=== PATIENT | female | born 1960 | race Caucasian/White ===

== ENCOUNTER 2021-07-18 09:24 | Day surgery (SDC) | payer BC ==
[2021-07-17 11:56] VITALS: BMI 29.5
[2021-07-18] MEDS ORDERED: Lidocaine 1% w/Epinephrine 1:100K 20 ML VIAL ONE (11:02)
[2021-07-18] MEDS ORDERED: Fentanyl 100 MCG/2 ML VIAL ONE (11:06)
[2021-07-18] MEDS ORDERED: Dexamethasone 20 MG/5 ML VIAL ONE (11:25)
[2021-07-18] MEDS ORDERED: PROPOFOL 200 MG/20 ML VIAL ONE (11:25)
[2021-07-18] MEDS ORDERED: Glycopyrrolate 0.2 MG/ML 5 ML SYRINGE ONE (11:25)
[2021-07-18] MEDS ORDERED: Succinylcholine 200 MG/10 ml SYRINGE FS ONE (11:25)
[2021-07-18] MEDS ORDERED: Ondansetron PF 4 MG/2 ML Vial ONE (11:25)
[2021-07-18] MEDS ORDERED: Lidocaine 1% PF 5 ML VIAL ONE (11:25)
[2021-07-18] MEDS ORDERED: ePHEDrine 50 MG/ML VIAL ONE (11:25)
[2021-07-18] MEDS ORDERED: Hydrocodone-Acetamin 15 ML UDCUP ONE (14:15)
== END 2021-07-18 14:45 | disposition home or self-care (01) ==
LOC: SDC 09:24
PROVIDERS: ATTEND Specialist
PROC: 0CJS8ZZ Inspection of Larynx, Via Natural or Artificial Opening Endoscopic (ICD-10-PCS; principal; 2021-07-18)
PROC: 0WB60ZX Excision of Neck, Open Approach, Diagnostic (ICD-10-PCS; principal; 2021-07-18)
DX: Q89.2 Congenital malformations of other endocrine glands (principal); R22.1 Localized swelling, mass and lump, neck; I10 Essential (primary) hypertension; E78.5 Hyperlipidemia, unspecified; Z86.16 Personal history of COVID-19; Z79.899 Other long term (current) drug therapy
CPT/HCPCS: 36415; 85014; 88305; 93005; 93010; J1100; J2405; J2704; J3010; J3490